=== PATIENT | male | born 1980 | race Caucasian/White ===

== ENCOUNTER 2025-06-02 11:08 | Outpatient (CLI) | payer BC | END 2025-06-02 11:09 | disposition home or self-care (01) | LOC: SCSMRI 11:08 | PROVIDERS: ATTEND Orthopaedic Surgery | DX: S83.241A Other tear of medial meniscus, current injury, right knee, initial encounter (principal); S83.281A Other tear of lateral meniscus, current injury, right knee, initial encounter ==